=== PATIENT | male | born 1980 | race Two or more races ===

== ENCOUNTER 2023-06-06 07:52 | Outpatient (CLI) | payer OTHER ==
[~2023-06-06 07:52] MED LIST: CELEBREX50 MG; IBUPROFEN800 MG PO; MUPIROCIN15 GM TP; SYNTHROID50 MCG
== END 2023-06-06 08:00 | disposition home or self-care (01) ==
LOC: RAD 07:52
PROVIDERS: ATTEND Internal Medicine Pulmonary Disease
DX: J45.30 Mild persistent asthma, uncomplicated (principal)